=== PATIENT | male | born 1955 | race Caucasian/White ===

== ENCOUNTER 2021-05-26 16:35 | Inpatient (IN) | payer MEDICARE, SELFPAY ==
[~2021-05-26] VITALS: Ht 182.9 cm; Wt 121.8 kg
[2021-05-26 17:47] LABS: HEMATOCRIT 53.1 % (42.0-52.0); HEMOGLOBIN 16.8 g/dl (13.5-17.5); MEAN CORPUSCULAR HEMOGLOBIN 30.1 pg (27.0-33.0); MEAN CORPUSCULAR HGB CONC 31.6 g/dl (32.0-36.5); MEAN CORPUSCULAR VOLUME 95.2 fl (80.0-96.0); PLATELET COUNT, AUTOMATED 286 10^3/uL (150-450); RED BLOOD COUNT 5.58 10^6/uL (4.30-6.10)
[2021-05-26 18:19] LABS: ACETAMINOPHEN LEVEL < 2.0 UG/ML (10.0-30.0); ALBUMIN 3.4 GM/DL (3.2-5.2); ALT/SGPT 46 U/L (12-78); BILIRUBIN,DIRECT 0.2 MG/DL (0.0-0.2); BILIRUBIN,TOTAL 0.7 MG/DL (0.2-1.0); BLOOD UREA NITROGEN 6 MG/DL (7-18); CALCIUM LEVEL 9.4 MG/DL (8.8-10.2); CARBON DIOXIDE LEVEL 33 MEQ/L (21-32); CHLORIDE LEVEL 105 MEQ/L (98-107); CREATININE FOR GFR 0.88 MG/DL (0.70-1.30); ETHYL ALCOHOL (ETHANOL) 0.061 % (0.000-0.010); GLOMERULAR FILTRATION RATE > 60.0 (>49); GLUCOSE, FASTING 97 MG/DL (70-100); POTASSIUM SERUM 4.7 MEQ/L (3.5-5.1); SALICYLATE LEVEL 2.4 MG/DL (5.0-30.0); SODIUM LEVEL 144 MEQ/L (136-145); TOTAL PROTEIN 7.3 GM/DL (6.4-8.2)
[2021-05-26 19:48] LABS: AMPHETAMINES LEVEL URINE NEGATIVE (NEGATIVE); BARBITURATES URINE NEGATIVE (NEGATIVE); BENZODIAZEPINES URINE NEGATIVE (NEGATIVE); CANNABINOIDS URINE NEGATIVE (NEGATIVE); COCAINE METABOLITE URINE NEGATIVE (NEGATIVE); METHADONE URINE NEGATIVE (NEGATIVE); OPIATES URINE NEGATIVE (NEGATIVE); PHENCYCLIDINE URINE NEGATIVE (NEGATIVE)
[2021-05-26] MEDS ORDERED: MAALOX 30 ML SUSP *UDC PO PRN (21:30)
[2021-05-26] MEDS ORDERED: traZODone 50 MG TAB PO PRN (21:30)
[2021-05-26] MEDS ORDERED: MOM 30ML SUSPENSION UDC PO PRN (21:30)
[2021-05-26 23:11] LABS: RSV AMPLIFICATION NEGATIVE (NEGATIVE)
[2021-05-26] MEDS ORDERED: PROAAER10 INH (23:11)
[2021-05-26] MEDS ORDERED: SERO200T PO ×2 (23:11)
[2021-05-26] MEDS ORDERED: POTA10TA17 PO (23:11)
[2021-05-26] MEDS ORDERED: VITATAB26 PO (23:11)
[2021-05-26] MEDS ORDERED: MELA5TAB7 PO (23:11)
[2021-05-26] MEDS ORDERED: TRAZ-186 PO (23:11)
[2021-05-26] MEDS ORDERED: INSUH10VL SC (23:11)
[2021-05-26] MEDS ORDERED: INSULANT SC (23:11)
[2021-05-26] MEDS ORDERED: FLUO-96 PO (23:11)
[2021-05-26] MEDS ORDERED: ACET-897 PO (23:11)
[2021-05-26] MEDS ORDERED: VITMTA PO (23:11)
[2021-05-26] MEDS ORDERED: VITA50TA47 PO (23:11)
[2021-05-26] MEDS ORDERED: GABA-282 PO (23:11)
[2021-05-26] MEDS ORDERED: HOME MED LIST COMPLETE! XX SCH (23:20)
[2021-05-27] MEDS ORDERED: ALBUTEROL 90 MCG/ACT 8GM HFA INHALER INH PRN (00:55)
[2021-05-27] MEDS ORDERED: DEXTROSE 50% 50 ML SYRINGE IV PRN (00:55)
[2021-05-27] MEDS ORDERED: GLUCOSE 4GM CHEW TABLET PO PRN (00:55)
[2021-05-27] MEDS ORDERED: GLUCAGON INJ 1MG VIAL SC PRN (00:55)
[2021-05-27] MEDS ORDERED: amLODIPine 5 MG TAB PO ONE (01:00)
[2021-05-27 01:05] VITALS: BP 184/112
[2021-05-27] MEDS: QUEtiapine FUMARATE 200 MG TAB PO SCH ×2 (01:33→17:13)
[2021-05-27] MEDS: traZODone 50 MG TAB PO SCH ×2 (01:40→21:13)
[2021-05-27 02:22] VITALS: BP 152/94
[2021-05-27] MEDS: HumaLOG INSULIN (NovoLOG) PER UNIT SC SCH ×4 (06:34→21:00)
[2021-05-27] MEDS: QUEtiapine FUMARATE 100 MG TAB PO SCH ×2 (08:54→17:00)
[2021-05-27] MEDS: POTASSIUM CHLORIDE 10MEQ SR TABLET PO SCH (08:54)
[2021-05-27] MEDS: THIAMINE 100 MG TAB PO SCH (08:55)
[2021-05-27] MEDS: FLUoxetine 20 MG CAP PO SCH (08:55)
[2021-05-27] MEDS: GABAPENTIN 300 MG CAP PO SCH ×3 (08:55→21:12)
[2021-05-27] MEDS: MULTIVITAMINS/MINERALS THERAP 1 TAB PO SCH (08:55)
[2021-05-27] MEDS: VITAMIN D 1,000 INTERNATIONAL UNITS TABLET PO SCH (08:55)
[2021-05-27] MEDS: VALSARTAN 40MG TABLET (DIOVAN) PO SCH (15:08)
[2021-05-27 16:31] VITALS: BP 131/78
[2021-05-27] MEDS: LEVEMIR (INSULIN DETEMIR) 1 UNITS/0.01ML SC SCH (21:12)
[2021-05-28] MEDS: ACETAMINOPHEN TAB 650MG DOSE (2X325MG) PO PRN ×2 (01:33→15:42)
[2021-05-28 06:22] VITALS: BP 164/82
[2021-05-28] MEDS: HumaLOG INSULIN (NovoLOG) PER UNIT SC SCH ×4 (06:46→21:00)
[2021-05-28] MEDS: FLUoxetine 20 MG CAP PO SCH (08:40)
[2021-05-28] MEDS: MULTIVITAMINS/MINERALS THERAP 1 TAB PO SCH (08:40)
[2021-05-28] MEDS: VITAMIN D 1,000 INTERNATIONAL UNITS TABLET PO SCH (08:40)
[2021-05-28] MEDS: GABAPENTIN 300 MG CAP PO SCH ×3 (08:40→21:55)
[2021-05-28] MEDS: PILL CUTTER 1 EACH XX PRN (08:40)
[2021-05-28] MEDS: THIAMINE 100 MG TAB PO SCH (08:41)
[2021-05-28] MEDS: POTASSIUM CHLORIDE 10MEQ SR TABLET PO SCH (08:41)
[2021-05-28] MEDS: VALSARTAN 40MG TABLET (DIOVAN) PO SCH (08:42)
[2021-05-28] MEDS ORDERED: FLUBLOK(EGG FREE)(QUAD)INFLUENZA VACC 0.5ML SYRINGE 18YRS & OLDER IM ONE (09:00)
[2021-05-28] MEDS ORDERED: PREVNAR 13 VACCINE SYRINGE IM ONE (09:00)
[2021-05-28] MEDS: NICOTINE 21MG/24HR 1 EA TRANSDERMAL TD PRN (17:13)
[2021-05-28 18:14] VITALS: BP 165/83
[2021-05-28] MEDS: LEVEMIR (INSULIN DETEMIR) 1 UNITS/0.01ML SC SCH (21:55)
[2021-05-28] MEDS: traZODone 50 MG TAB PO SCH (21:55)
[2021-05-29] MEDS: HumaLOG INSULIN (NovoLOG) PER UNIT SC SCH ×4 (06:47→20:43)
[2021-05-29 06:55] VITALS: BP 152/90
[2021-05-29] MEDS: FLUoxetine 20 MG CAP PO SCH (08:22)
[2021-05-29] MEDS: VITAMIN D 1,000 INTERNATIONAL UNITS TABLET PO SCH (08:22)
[2021-05-29] MEDS: MULTIVITAMINS/MINERALS THERAP 1 TAB PO SCH (08:22)
[2021-05-29] MEDS: NICOTINE 21MG/24HR 1 EA TRANSDERMAL TD PRN (08:23)
[2021-05-29] MEDS: POTASSIUM CHLORIDE 10MEQ SR TABLET PO SCH (08:23)
[2021-05-29] MEDS: VALSARTAN 40MG TABLET (DIOVAN) PO SCH (08:23)
[2021-05-29] MEDS: THIAMINE 100 MG TAB PO SCH (08:23)
[2021-05-29] MEDS: GABAPENTIN 300 MG CAP PO SCH ×3 (08:23→20:42)
[2021-05-29 08:29] VITALS: BP 150/84
[2021-05-29 18:49] VITALS: BP 160/80
[2021-05-29] MEDS: LEVEMIR (INSULIN DETEMIR) 1 UNITS/0.01ML SC SCH (20:42)
[2021-05-29] MEDS: traZODone 50 MG TAB PO SCH (20:43)
[2021-05-30] MEDS: HumaLOG INSULIN (NovoLOG) PER UNIT SC SCH ×4 (06:22→20:36)
[2021-05-30 07:07] VITALS: BP 167/82
[2021-05-30] MEDS: POTASSIUM CHLORIDE 10MEQ SR TABLET PO SCH (08:17)
[2021-05-30] MEDS: PILL CUTTER 1 EACH XX PRN (08:18)
[2021-05-30] MEDS: VITAMIN D 1,000 INTERNATIONAL UNITS TABLET PO SCH (08:19)
[2021-05-30] MEDS: NICOTINE 21MG/24HR 1 EA TRANSDERMAL TD PRN (08:19)
[2021-05-30] MEDS: VALSARTAN 40MG TABLET (DIOVAN) PO SCH (08:19)
[2021-05-30] MEDS: GABAPENTIN 300 MG CAP PO SCH ×3 (08:19→20:36)
[2021-05-30] MEDS: MULTIVITAMINS/MINERALS THERAP 1 TAB PO SCH (08:20)
[2021-05-30] MEDS: THIAMINE 100 MG TAB PO SCH (08:21)
[2021-05-30] MEDS: FLUoxetine 20 MG CAP PO SCH (08:21)
[2021-05-30] MEDS: DICLOFENAC EPOLAMINE 1.3 % PATCH TOP SCH ×2 (11:55→21:33)
[2021-05-30 17:11] VITALS: BP 139/76
[2021-05-30] MEDS: LEVEMIR (INSULIN DETEMIR) 1 UNITS/0.01ML SC SCH (20:36)
[2021-05-30] MEDS: QUEtiapine FUMARATE 200 MG TAB PO SCH (20:36)
[2021-05-30] MEDS: traZODone 50 MG TAB PO SCH (20:36)
[2021-05-31 06:14] VITALS: BP 137/92
[2021-05-31] MEDS: HumaLOG INSULIN (NovoLOG) PER UNIT SC SCH ×4 (06:59→20:22)
[2021-05-31] MEDS: MULTIVITAMINS/MINERALS THERAP 1 TAB PO SCH (08:20)
[2021-05-31] MEDS: GABAPENTIN 300 MG CAP PO SCH ×3 (08:20→20:14)
[2021-05-31] MEDS: PILL CUTTER 1 EACH XX PRN (08:20)
[2021-05-31] MEDS: FLUoxetine 20 MG CAP PO SCH (08:21)
[2021-05-31] MEDS: VITAMIN D 1,000 INTERNATIONAL UNITS TABLET PO SCH (08:21)
[2021-05-31] MEDS: POTASSIUM CHLORIDE 10MEQ SR TABLET PO SCH (08:21)
[2021-05-31] MEDS: DICLOFENAC EPOLAMINE 1.3 % PATCH TOP SCH ×2 (08:22→20:13)
[2021-05-31] MEDS: VALSARTAN 40MG TABLET (DIOVAN) PO SCH (08:22)
[2021-05-31] MEDS: THIAMINE 100 MG TAB PO SCH (08:24)
[2021-05-31 16:09] VITALS: BP 138/82
[2021-05-31] MEDS: QUEtiapine FUMARATE 200 MG TAB PO SCH (20:13)
[2021-05-31] MEDS: traZODone 50 MG TAB PO SCH (20:14)
[2021-05-31] MEDS: LEVEMIR (INSULIN DETEMIR) 1 UNITS/0.01ML SC SCH (20:22)
[2021-06-01] MEDS: HumaLOG INSULIN (NovoLOG) PER UNIT SC SCH (06:24)
[2021-06-01 06:40] VITALS: BP 148/80
[2021-06-01] MEDS ORDERED: DICL1PAT6 TOP (08:13)
[2021-06-01] MEDS ORDERED: DIOV40TA PO (08:13)
[2021-06-01] MEDS ORDERED: NICO21PAT TD (08:13)
[2021-06-01] MEDS: PILL CUTTER 1 EACH XX PRN (08:23)
[2021-06-01] MEDS: DICLOFENAC EPOLAMINE 1.3 % PATCH TOP SCH (08:23)
[2021-06-01] MEDS: GABAPENTIN 300 MG CAP PO SCH (08:23)
[2021-06-01] MEDS: POTASSIUM CHLORIDE 10MEQ SR TABLET PO SCH (08:24)
[2021-06-01] MEDS: FLUoxetine 20 MG CAP PO SCH (08:24)
[2021-06-01] MEDS: VITAMIN D 1,000 INTERNATIONAL UNITS TABLET PO SCH (08:24)
[2021-06-01] MEDS: MULTIVITAMINS/MINERALS THERAP 1 TAB PO SCH (08:24)
[2021-06-01 08:27] VITALS: BP 112/70
[2021-06-01] MEDS: THIAMINE 100 MG TAB PO SCH (08:27)
[2021-06-01] MEDS: VALSARTAN 40MG TABLET (DIOVAN) PO SCH (08:27)
== END 2021-06-01 10:30 | disposition home or self-care (01) | DRG 885 ==
LOC: M ED 16:35 → M ED INP 21:30 → M PSY 05-27 00:20
PROVIDERS: ADMIT Psychiatry & Neurology Psychiatry; ATTEND Psychiatry & Neurology Psychiatry
DX: F33.1 Major depressive disorder, recurrent, moderate (principal); R45.851 Suicidal ideations; F17.200 Nicotine dependence, unspecified, uncomplicated; F10.10 Alcohol abuse, uncomplicated; R45.850 Homicidal ideations; Z79.899 Other long term (current) drug therapy; Z79.4 Long term (current) use of insulin; Z88.0 Allergy status to penicillin; J45.909 Unspecified asthma, uncomplicated; I10 Essential (primary) hypertension; E11.40 Type 2 diabetes mellitus with diabetic neuropathy, unspecified; F41.9 Anxiety disorder, unspecified